=== PATIENT | male | born 1990 | race Caucasian/White ===

== ENCOUNTER 2017-08-24 18:00 | Emergency (ER) | payer SELFPAY ==
[~2017-08-24] VITALS: Ht 177.8 cm; Wt 90.0 kg
[2017-08-24 18:10] VITALS: BP 109/73; PULSE 102; RESP 14; TEMP 98.3; O2SAT 97
[2017-08-26] MEDS ORDERED: ROBA500T PO (11:24)
[2017-08-26] MEDS ORDERED: IBUP1TAB7 PO (11:24)
== END 2017-08-24 21:00 | disposition left against medical advice (07) ==
LOC: NED 18:00
DX: M79.89 Other specified soft tissue disorders (principal)
CPT/HCPCS: 99281